=== PATIENT | female | born 1980 | race Hispanic/Latino ===

== ENCOUNTER 2018-09-13 08:53 | Observation (INO) | payer MEDICAID ==
[~2018-09-13] VITALS: Ht 152.4 cm; Wt 99.3 kg
[2018-09-13 09:30] LABS: APPEARANCE,URINE Clear (CLEAR); BILIRUBIN,URINE Negative (NEGATIVE); COLOR,URINE Yellow (YELLOW); GLUCOSE, URINE (UA) Negative (NEGATIVE); KETONES,URINE Negative (NEGATIVE); LEUKOCYTE ESTERASE ,URINE Large (NEGATIVE); NITRATE,URINE Negative (NEGATIVE); OCCULT BLOOD,URINE Negative (NEGATIVE); PROTEIN,URINE Negative (NEGATIVE); UROBILINOGEN,URINE 0.2 mg/dL (0.2-1.0)
[2018-09-13 09:32] LABS: BACTERIA,URINE Few /HPF (None Seen); RBC,URINE 0-1 /HPF (0-1); SQUAMOUS EPITHELIAL CELL,UR Rare /HPF (0-2)
[2018-09-13] MEDS ORDERED: ONDANSETRON HCL 4 MG/2 ML VIAL IVP SCH (10:15)
[2018-09-13] MEDS ORDERED: LACTATED RINGERS 1000ML 1,000 ML IV SCH (10:15)
[2018-09-13] MEDS ORDERED: PROMETHAZINE HCL 25 MG/ML 1ML AMPULE IM SCH (10:15)
[2018-09-18] MEDS ORDERED: DIPH25 PO (08:04)
== END 2018-09-13 11:55 | disposition home or self-care (01) ==
LOC: LDH 08:53
PROVIDERS: ADMIT Obstetrics & Gynecology; ATTEND Obstetrics & Gynecology
DX: O26.893 Other specified pregnancy related conditions, third trimester (principal); R11.0 Nausea; R19.7 Diarrhea, unspecified; O99.343 Other mental disorders complicating pregnancy, third trimester; F79 Unspecified intellectual disabilities; Z3A.37 37 weeks gestation of pregnancy
CPT/HCPCS: 76819; 81001; 96372; 96374; G0378 ×3; J2405; J2550; J7120; 96360

== ENCOUNTER 2018-09-26 15:29 | Observation (INO) | payer MEDICAID ==
[~2018-09-26 15:29] MED LIST: DIPH25 PO
[2018-09-26 16:40] LABS: APPEARANCE,URINE Clear (CLEAR); BILIRUBIN,URINE Negative (NEGATIVE); COLOR,URINE Yellow (YELLOW); GLUCOSE, URINE (UA) Negative (NEGATIVE); HEMATOCRIT 36.7 % (36-48); KETONES,URINE Negative (NEGATIVE); LEUKOCYTE ESTERASE ,URINE Trace (NEGATIVE); MEAN CORPUSCULAR HEMOGLOBIN 26.7 pg (27.0-33.0); MEAN CORPUSCULAR HGB CONC 32.3 g/dL (32.0-36.0); MEAN CORPUSCULAR VOLUME 82.5 fL (79-99); NITRATE,URINE Negative (NEGATIVE); OCCULT BLOOD,URINE Negative (NEGATIVE); PH,URINE 5.5 (5.0-8.0); PLATELET COUNT (AUTO) 537 K/uL (130-400); PROTEIN,URINE Negative (NEGATIVE); RED BLOOD CELL COUNT(AUTO) 4.44 MIL/uL (4.00-5.50); RED CELL DISTRIBUTION WIDTH 15.6 % (11.0-15.5); WHITE BLOOD COUNT (AUTO) 7.7 K/uL (4.8-10.8)
[2018-09-26 17:00] LABS: CREATININE 0.7 mg/dL (0.5-1.5)
[2018-09-26 17:04] LABS: ALBUMIN 3.1 g/dL (3.5-5.0); BILIRUBIN,TOTAL 0.5 mg/dL (0.2-1.0); TOTAL PROTEIN, SERUM 7.9 g/dL (6.0-8.3)
[2018-09-26 17:05] LABS: INR 0.93 (0.85-1.15); PARTIAL THROMBOPLASTIN TIME 28.7 SEC (26.3-35.5); PROTHROMBIN TIME 9.8 SEC (9.6-11.6)
[2018-09-26 17:12] LABS: RBC,URINE 0-1 /HPF (0-1)
[2018-09-26 17:13] LABS: BACTERIA,URINE Few /HPF (None Seen); MUCUS,URINE Rare LPF (None Seen); SQUAMOUS EPITHELIAL CELL,UR Few /HPF (0-2)
== END 2018-09-26 17:45 | disposition home or self-care (01) ==
LOC: LDH 15:29
PROVIDERS: ADMIT Obstetrics & Gynecology; ATTEND Obstetrics & Gynecology
DX: O90.89 Other complications of the puerperium, not elsewhere classified (principal); R51 Headache; O16.5 Unspecified maternal hypertension, complicating the puerperium
CPT/HCPCS: 36415; 80053; 81001; 84550; 85027; 85384; 85610; 85730; G0378 ×2

== ENCOUNTER 2019-01-23 03:33 | Emergency (ER) | payer MEDICAID, OTHER ==
[2019-01-23] MEDS ORDERED: KETOROLAC TROMETHAMINE 60 MG/2 ML VIAL ONE (04:02)
[2019-01-23] MEDS ORDERED: LACTULOSE 20 GM/30 ML UDCUP ONE (04:02)
== END 2019-01-23 04:27 | disposition home or self-care (01) ==
LOC: EDH 03:33
DX: M62.830 Muscle spasm of back (principal); F43.9 Reaction to severe stress, unspecified; K59.00 Constipation, unspecified; M89.8X9 Other specified disorders of bone, unspecified site; Z88.1 Allergy status to other antibiotic agents
CPT/HCPCS: 96372; 99283; J1885

== ENCOUNTER 2022-01-14 01:32 | Emergency (ER) | payer BC ==
[~2022-01-14] VITALS: Ht 152.4 cm; Wt 88.9 kg
[~2022-01-14 01:32] MED LIST changes: +ONDA-104 PO
[2022-01-14 03:47] VITALS: BP 131/83
== END 2022-01-14 03:50 | disposition home or self-care (01) ==
LOC: EDH 01:32
DX: T80.1XXA Vascular complications following infusion, transfusion and therapeutic injection, initial encounter (principal); I80.9 Phlebitis and thrombophlebitis of unspecified site; Z90.89 Acquired absence of other organs; Z90.49 Acquired absence of other specified parts of digestive tract; Z88.1 Allergy status to other antibiotic agents; Z79.899 Other long term (current) drug therapy